=== PATIENT | male | born 1990 | race Caucasian/White ===

== ENCOUNTER 2020-11-14 15:09 | Emergency (ER) | payer OTHER ==
[~2020-11-14] VITALS: Ht 177.8 cm; Wt 83.9 kg
[~2020-11-14 15:09] MED LIST: ACET325; ALBU90OI INH; AMOX500 PO; CEPH250A PO; CODACE30 PO; CODACEE120 PO; HYDACE5 PO; HYDGUAL120 PO; IBUP600 PO; NAPR500 PO; PROM25 PO; Prednisone20 MG PO; RXCODACET PO
[2020-11-14] MEDS ORDERED: Percocet 5-3251 EACH PO (17:01)
[2020-11-14] MEDS ORDERED: CEPH500 PO ×2 (17:01→17:31)
== END 2020-11-14 17:56 | disposition home or self-care (01) ==
LOC: ER 15:09
DX: S56.122A Laceration of flexor muscle, fascia and tendon of left index finger at forearm level, initial encounter (principal); S61.211A Laceration without foreign body of left index finger without damage to nail, initial encounter; Z23 Encounter for immunization; Z87.891 Personal history of nicotine dependence; W31.2XXA Contact with powered woodworking and forming machines, initial encounter
CPT/HCPCS: 12002; 29130; 73130; 90471; 90714; 99283-25